=== PATIENT | female | born 1985 ===

== ENCOUNTER 2023-05-20 11:09 | Emergency (ER) | payer OTHER, SELFPAY ==
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
[2023-05-20 11:59] VITALS: BP 126/75; PULSE 74; RESP 14; O2SAT 97; BMI 18.6
== END 2023-05-20 13:35 | disposition home or self-care (01) ==
PROVIDERS: Emergency Provider Emergency Medicine
DX: Z04.1 Encounter for examination and observation following transport accident (principal); M54.50 Low back pain, unspecified
CPT/HCPCS: 72070; 72100; 99282; 99283

== ENCOUNTER 2023-06-17 09:39 | Emergency (ER) | payer SELFPAY ==
--- NOTE | ~2023-06-17 | XR_ITS ---
EXAMINATION: XR CHEST CLINICAL INFORMATION: Chest pain COMPARISON: None available. TECHNIQUE: Frontal view of the chest was obtained. FINDINGS: No focal consolidation. No pneumothorax. Trachea is midline. Cardiac mediastinal silhouette is not enlarged. No large pleural effusion. Osseous structures are intact. Soft tissues are unremarkable. XR/XR chest 1V IMPRESSION: No acute cardiopulmonary process.
--- NOTE | 2023-06-17 09:45 | ECG_ITS ---
Test Reason : cp Blood Pressure : / mmHG Vent. Rate : 072 BPM Atrial Rate : 072 BPM P-R Int : 124 ms QRS Dur : 070 ms QT Int : 360 ms P-R-T Axes : 071 042 046 degrees QTc Int : 394 ms Normal sinus rhythm with sinus arrhythmia Septal infarct , age undetermined Abnormal ECG No previous ECGs available Referred By: Generic ED Physician Electronically Signed By:Hamzah Mooney
[2023-06-17 09:58] VITALS: BP 128/83; PULSE 82; RESP 18; TEMP 36.8; O2SAT 99
[2023-06-17 10:37] LABS: Hematocrit 42.7 % (37.0-47.0); Hemoglobin 14.6 g/dl (12.0-16.0); Mean Corpuscular HGB Conc 34.2 g/dl (31.0-35.0); Mean Corpuscular Hemoglobin 31.7 pg (27.0-33.0); Mean Corpuscular Volume 92.6 fL (80.0-98.0); Mean Platelet Volume 11.6 fL (9.4-12.3); PLT CLUMP 1; Red Blood Count 4.61 X10*6/uL (4.20-5.50); Red Cell Distribution Width 12.1 % (11.0-16.0)
[2023-06-17 10:38] LABS: WBC ABN SCTR FOR CBC 1
[2023-06-17 10:56] LABS: Anion Gap 9 (12-20); Blood Urea Nitrogen 9 mg/dL (9-16); Calcium 9.9 mg/dL (8.4-10.2); Carbon Dioxide 26 mmol/L (22-29); Chloride 107 mmol/L (96-108); Creatinine Clr Calc Pharmacy 72.4; Estimated Glomerular Filt Rate > 60; Glucose Random 87 mg/dL (60-115); Potassium 3.8 mmol/L (3.3-5.1); Sodium 138 mmol/L (135-145)
[2023-06-17 11:07] LABS: Band Neutrophils Percent 0 % (3-5); Eosinophils Percent Manual 1 % (0-4); Lymphocytes Percent Manual 22 % (20-40); Monocytes Percent Manual 6 % (2-11); Neutrophils Percent Manual 71 % (45-73)
[2023-06-17 11:11] LABS: RBC Morphology NORMAL
[2023-06-17 11:12] LABS: Platelet Estimate DECREASED (NORMAL); Platelet Morphology Comment NORMAL
--- NOTE | 2023-06-17 11:14 | ED_ITS ---
HPI - Chest Pain General Chief Complaint: Chest Pain Stated Complaint: chest pain diff breathing Time Seen by Provider: 06/17/23 11:09 Source: patient and old records reviewed Mode of arrival: ambulatory Limitations: no limitations History of Present Illness HPI narrative: 38 yo female with PMH of COPD not on inhalers, not on OCPs here with c/o intermittent bilateral sharp chest pain x 2 weeks worse with movements and exertion. No known CAD, no fam hx of early CAD, no recent URI or cocaine use. She smokes THC but no cigarettes. MD complaint: chest pain Onset (ago): week(s) (2) Timing of current episode: episodic Prior episodes: No Onset: during rest and during exertion Pain location: left chest and right chest Pain radiation: none Severity: moderate Quality: sharp Relieving factors: nothing Exacerbating factors: exertion, palpation and movement Associated symptoms: dyspnea Treatment prior to arrival: none Related Data Previous Rx's Medication Instructions Recorded cyclobenzaprine 5 mg tablet 5 mg PO BEDTIME PRN muscle spasm 05/20/23 #7 tabs lidocaine 5 % topical patch 1 patch topical DAILY #15 ea 05/20/23 (Lidoderm) naproxen 500 mg tablet 500 mg PO Q8-12H PRN pain (scale 05/20/23 score 4-6) #14 tabs albuterol sulfate 90 mcg/actuation 2 puff inhalation QID PRN 06/17/23 aerosol inhaler shortness of breath or wheezing #6.7 grams fluticasone furoate 100 1 inh inhalation DAILY 14 days #14 06/17/23 mcg/actuation blister powder for ea inhalation prednisone 20 mg tablet 20 mg PO DAILY 5 days #5 tabs 06/17/23 Allergies Allergy/AdvReac Type Severity Reaction Status Date / Time No Known Allergies Allergy Verified 05/20/23 11:58 Review of Systems 2 Review of Systems: Constitutional : No Weight loss, No Fever, No Chills ENT/Mouth : No sore throat, No Rhinorrhea Eyes: No Eye Pain, No Swelling Cardiovascular : pos Chest Pain, pos SOB, no Dyspnea on Exertion, No Orthopnea, No Edema, No Palpitations Respiratory : No Cough, No Sputum Gastrointestinal : no Nausea, No Vomiting, No Diarrhea, No abdominal Pain, No Hematochezia, No Melena Genitourinary : No Dysuria, No Urinary Frequency Musculoskeletal : No joint pain, No Myalgias, No Joint Swelling Skin : No Skin Lesions, No rash Neuro : No Weakness, No Numbness, No Dizziness, No Headache Psych : No Anxiety/Panic, No Depression All other systems reviewed and are negative [facility] Past Medical History Attestation statement: The following information was validated with the patient. Medical History COPD (chronic obstructive pulmonary disease) Social History Social History (Updated 06/17/23 @ 11:40 by Yeni Allen DO) Patient Tobacco Use Status: Never used Tobacco Substance Use Type: Marijuana Advance Directives: No Advance Directives Information Provided: No Physical Exam 2 Vital Signs: Vital Signs: Last Vital Signs Temp 98.5 F 06/17/23 11:29 Pulse 95 06/17/23 11:29 Resp 13 06/17/23 11:29 BP 141/90 H 06/17/23 11:29 Pulse Ox 98 06/17/23 11:29 O2 Del Method Room Air 06/17/23 11:29 BMI result Body Mass Index 0.2 Appearance: Alert. Oriented X3. No acute distress. Eyes: Pupils equal, round and reactive to light. ENT: Pharynx normal. Neck: Normal inspection. Neck supple. CVS: Normal heart rate and rhythm. Pulses normal. Chest: ttp along bilateral costochondral border Respiratory: No respiratory distress. Breath sounds normal. Abdomen: Soft and nontender. Skin: Skin warm and dry. Normal skin color. Normal skin turgor. Extremities: No lower extremity edema. No calf ttp Neuro: Oriented X 3. No motor deficit. No sensory deficit. Medical Decision Making Medical Decision Making [facility] Narrative: 38 yo female with PMH of COPD but not inhalers here with c/o 2 weeks intermittent sharp chest pains on and off seems worse with movements and exertion. No recent travel procedures, not on OCPs. At this time will need EKG, troponin x 1, PERC negative, distal pulses intact doubt dissection, seems more resp related will obtain Differential Diagnosis Differential Diagnoses: The differential diagnosis associated with the presentation includes pneumonia, costochondritis, COPD Admission/Observation Consideration of admission/observation: Escalation of care including admission/observation considered negative workup stable for DC Lab Data [facility] Lab Attestation statement: I reviewed the patient's lab results. 06/17/23 10:27 06/17/23 10:27 Labs: Lab Results 06/17/23 06/17/23 Range/Units 10:27 11:36 WBC 9.4 (4.8-10.8) X10*3/uL RBC 4.61 (4.20-5.50) X10*6/uL Hgb 14.6 (12.0-16.0) g/dl Hct 42.7 (37.0-47.0) % MCV 92.6 (80.0-98.0) fL MCH 31.7 (27.0-33.0) pg MCHC 34.2 (31.0-35.0) g/dl RDW 12.1 (11.0-16.0) % Plt Count 124 L (160-400) X10*3/uL MPV 11.6 (9.4-12.3) fL Immature Gran % (Auto) Cancelled Neut % (Auto) Cancelled Lymph % (Auto) Cancelled Evans % (Auto) Cancelled Eos % (Auto) Cancelled Baso % (Auto) Cancelled Lymph # (Auto) Cancelled Evans # (Auto) Cancelled Eos # (Auto) Cancelled Baso # (Auto) Cancelled Abs Immat Gran (auto) Cancelled Absolute Neuts (auto) Cancelled Absolute Nucleated RBC 0.000 (0.0-0.012) X10*3/uL Nucleated RBC % (auto) 0.0 (0.0-0.2) /100WBC Neutrophils % (Manual) 71 (45-73) % Band Neutrophils % 0 L (3-5) % Lymphocytes % (Manual) 22 (20-40) % Monocytes % (Manual) 6 (2-11) % Eosinophils % (Manual) 1 (0-4) % Abs Neuts (Manual) 6.7 (2.0-8.3) X10*3/uL Lymphocytes # (Manual) 2.1 (1.2-4.9) X10*3/uL Monocytes # (Manual) 0.6 (0.1-1.2) X10*3/uL Eosinophils # (Manual) 0.1 (0.0-0.4) X10*3/uL Platelet Estimate DECREASED (NORMAL) Plt Morphology Comment NORMAL RBC Morphology NORMAL Sodium 138 (135-145) mmol/L Potassium 3.8 (3.3-5.1) mmol/L Chloride 107 (96-108) mmol/L Carbon Dioxide 26 (22-29) mmol/L Anion Gap 9 L (12-20) BUN 9 (9-16) mg/dL Creatinine 0.80 (0.5-1.4) mg/dL Estim Creat Clear Calc 72.4 Estimated GFR > 60 Random Glucose 87 (60-115) mg/dL Calcium 9.9 (8.4-10.2) mg/dL Magnesium 2.0 (1.6-2.6) mg/dL Troponin I High Sens 3.0 (<3.5-17.0) ng/L Influenza Type A (PCR) NEGATIVE (Negative) Influenza Type B (PCR) NEGATIVE (Negative) RSV RNA Qual (PCR) NEGATIVE (Negative) SARS-CoV-2 RNA (RT-PCR) NEGATIVE (Negative) Independent Interpretation I performed an independent interpretation of an: EKG and Plain X-Ray (normal ) Interpretation: Rate: 72 Rhythm: NSR Rhine: normal Normal P waves. Normal JODEE. Normal QRS complex. ST T wave : normal no GLORIA qTC: normal prior studies: no acute ischemia The study has been interpreted contemporaneously by me. . Radiology Impression Discussion of test interpretation with radiology: I have reviewed the radiologist's reading. External Record Review External record reviewed: Outpatient record Prescription Management I considered prescription management with: Other Discharge Plan Discharge Clinical Impression: Atypical chest pain COPD (chronic obstructive pulmonary disease) Qualifiers: COPD type: COPD with acute exacerbation Qualified Code(s): J44.1 - Chronic obstructive pulmonary disease with (acute) exacerbation Patient Disposition: Home, Self-Care Instructions: Chest Pain (ED), COPD (Chronic Obstructive Pulmonary Disease) (ED) Additional Instructions: EKG, tests for heart, viral panel, chest xray normal follow up with your doctor if this continues for outpatient stress test. platelet count was mildly low can repeat in 1 week with your doctor avoid aspirin Prescriptions: New prednisone 20 mg tablet 20 mg PO DAILY 5 Days Qty: 5 0RF albuterol sulfate 90 mcg/actuation HFA aerosol inhaler 2 puff inhalation QID PRN (Reason: shortness of breath or wheezing) Qty: 6.7 0RF fluticasone furoate 100 mcg/actuation blister with device 1 inh inhalation DAILY 14 Days Qty: 14 0RF Rx Instructions: rinse mouth after No Action lidocaine [Lidoderm] 5 % adhesive patch,medicated 1 patch topical DAILY Qty: 15 0RF Rx Instructions: leave on most painful area for up to 12 hrs naproxen 500 mg tablet 500 mg PO Q8-12H PRN (Reason: pain (scale score 4-6)) Qty: 14 0RF cyclobenzaprine 5 mg tablet 5 mg PO BEDTIME PRN (Reason: muscle spasm) Qty: 7 0RF Stand Alone Forms: Work/School Release
[2023-06-17 11:29] VITALS: BP 141/90; PULSE 95; RESP 13; TEMP 36.9; O2SAT 98
[2023-06-17 11:35] LABS: Eosinophils Absolute Manual 0.1 X10*3/uL (0.0-0.4); Lymphocytes Absolute Manual 2.1 X10*3/uL (1.2-4.9); Monocytes Absolute Manual 0.6 X10*3/uL (0.1-1.2); Neutrophils Absolute Manual 6.7 X10*3/uL (2.0-8.3); White Blood Count 9.4 X10*3/uL (4.8-10.8)
[2023-06-17 11:36] LABS: Platelet Count 124 X10*3/uL (160-400)
[2023-06-17 12:19] LABS: Influenza A PCR NEGATIVE (Negative); Influenza B PCR NEGATIVE (Negative); Resp Syncy Virus RNA Qual PCR NEGATIVE (Negative); SARS COV2 PCR INHOUSE NEGATIVE (Negative)
[2023-06-17 13:35] VITALS: BP 113/83; PULSE 67; RESP 16; TEMP 36.6; O2SAT 98
== END 2023-06-17 13:36 | disposition home or self-care (01) ==
PROVIDERS: Emergency Provider Emergency Medicine
DX: J44.1 Chronic obstructive pulmonary disease with (acute) exacerbation (principal); R07.89 Other chest pain; Z11.52 Encounter for screening for COVID-19; Z20.828 Contact with and (suspected) exposure to other viral communicable diseases
CPT/HCPCS: 0241U; 36415; 71045; 80048; 83735; 84484; 85007; 85027; 93005; 99283; 99285

== ENCOUNTER → 2023-06-17 09:45 | Outpatient (BNV) | payer SELFPAY | PROVIDERS: Emergency Provider Emergency Medicine; Visit Provider Internal Medicine Cardiovascular Disease | DX: I49.9 Cardiac arrhythmia, unspecified (principal) | CPT/HCPCS: 93010 ==

== ENCOUNTER 2024-12-03 10:41 | Emergency (ER) | payer SELFPAY ==
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
[2024-12-03 11:10] VITALS: BP 142/87; PULSE 82; RESP 16; TEMP 36.1; O2SAT 99; BMI 20.6
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
[2024-12-03 12:29] VITALS: BP 142/87; PULSE 82; RESP 16; TEMP 36.1; O2SAT 99
--- OUTSIDE RECORDS SUMMARY | 2024-12-03 16:17 | XMS_ITS | Clinical Summary ---
Author Organization [facility] Address [address] [place] [address] Care Team Providers Care Dyehouse Worker Name Role Phone Thomasserafin Rikmarkel KRISTIN Primary Care Provider [phone] Source Comments PLEASE NOTE, if this patient is a minor, it may be UNLAWFUL to discuss sensitive information that is contained in these records (such as FAMILY PLANNING, MENTAL HEALTH or SUBSTANCE ABUSE) with the minor patient's parent or other person without the patient's specific authorization.[facility] Allergies No known active allergies Medications clobetasoL (TEMOVATE) 0.05 % cream APPLY DAILY TO AFFECTED AREAS ON SCALP ONCE DAILY FOR 3 WEEKS, THEN BREAK 1 WEEK AND REPEAT 3 Active acetaminophen (TYLENOL) 500 mg tabletIndicatio ns:Chronic daily headache Take 1 Tablet by mouth every 6 (six) hours as needed for pain or fever (headaches) 90 Tablet 1 3 Active mometasone-form oterol (DULERA) 100-5 mcg/actuation inhalerIndicati ons:maintenance therapy for asthma Inhale 1 Puff into the lungs 2 (two) times daily Indications: controller medication for asthma 1 g 5 3 Active albuterol HFA 90 mcg/actuation inhalerIndicati ons:acute asthma attack Inhale 2 Puffs into the lungs every 6 (six) hours as needed for shortness of breath or wheezing Indications: asthma attack 18 g 2 3 Active FLUoxetine (PROZAC) 40 mg capsuleIndicati ons:anxiety with depression Take 1 Capsule by mouth every morning Indications: anxiousness associated with depression 90 Capsule 1 3 Active nortriptyline (PAMELOR) 25 mg capsuleIndicati ons:Chronic daily headache TAKE 1 CAPSULE BY MOUTH NIGHTLY AT BEDTIME MIGRAINE PREVENTION 90 Capsule 3 3 Active omeprazole (PRILOSEC) [address] capsuleIndicati ons:Chronic GERD TAKE 1 CAPSULE BY MOUTH EVERY DAY IN THE MORNING BEFORE BREAKFAST 90 Capsule 3 Active Active Problems Problem Noted Date Diagnosed Date Chronic GERD 07/20/2021 Chronic daily headache 07/20/2021 Marijuana user 07/20/2021 Positive test for herpes simplex virus (HSV) ant ibody 06/14/2018 Low grade squamous intraepit helial lesion (LGSIL) on cervicovaginal cytologic smear 09/11/2017 COPD with asthma ([facility]) 05/19/2017 Overview (05/19/2017): CXR at [facility] on 2017: No acute pulmonary disease. Findings as above consistent with COPD. 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 Gordon, 2016 biopsy negative H. pylori infection 02/21/2016 09/14/19 23 Immune to hepatitis B 02/20/20162022 Immunizations Immunization Administration Dates Next Due Flu, Preservative Free 01/08/2018 HEP A-HEP B ([facility]) 09/13/2022 Hep A, adult 09/13/2022(Deferred: Different Brand Given),06/06/2018 Hep B, Adult/Adol (MAKMBHP-G-WTYXG/RECOMBIVAX-ADULT) 10/08/2018,06/06/2018 Hep B,adult,adjuvanted (HEPLISAV) 2022(Deferred: Different Brand Given) INFLUENZA, SEASONAL, INJECTABLE 04/09/2013 INFLUENZA, SEASONAL, INJECTA BLE, PRESERVATIVE FREE 12/26/2015,01/13/2015 PNEUMOCOCCAL POLYSACCHARIDE PPV23 (Pneumovax 23) 06/06/2018 TDAP 10/08/2018 Social History Tobacco Use Types Packs/Day Years Used Date Smoking Tobacco: Former Smokeless Tobacco: Never Comments:Quit at age 19 Alcohol Use Standard Drinks/Week Comments Yes 0 (1 standard drink = 0.6 oz pur e alcohol) occasionally Social Connections Answer Date Recorded Connectedness 0 11/30/2023 Financial Resource Strain Answer Date R ecorded Financial Resource Strain 0 2018 Stress Answer Date Recorded Stress 0 11/10/2018 Physical Activity Answer Date Recorded Physical Activity 0 11/10/2018 Food Insecurity Answer Date Recorded Food 0 12/19/2023 Transportation Needs Answer Date Record ed Transportation 0 11/10/2018 Housing Stability Answer Date Recorded Housing 0 11/10/2018 Safety and Environment Answer Date Fabrice rded Safety 0 09/13/2022 Utilities Answer Date Recorded Utilities 0 11/10/2018 Employment Answer Date Recorded Employment 0 11/10/2018 Comments No Sex and Gender Information Value Date Recorded Sex Assigned at Female 04/15/2017 7:40 AM PST Legal Sex Female 11:50 AM PDT Gender Identity Female 04/15/2017 7:40 AM PST Sexual Orientation Straight 06/06/2018 7: 10 AM PDT Last Filed Vital Signs Vital Sign Reading Time Taken Comments Blood Pressure 118/80 01/05/2023 11:26 AM EDT Pulse 67 01/05/2023 11:26 AM EDT Temperature 36.6 C (97.8 F) 01/05/2023 11:26 AM EDT Respiratory Rate 20 01/05/2023 11:26 AM EDT Oxygen Saturation 95% 09/13/2022 10:43 AM EDT Inhaled Oxygen Concentration - - Weight 47.6 kg (105 lb) 01/05/2023 11:26 AM EDT Height 160 cm (5' 3 ) 01/05/2023 11:26 AM EDT Body Mass Index 18.6 01/05/2023 11:26 AM EDT Plan of Treatment Health Maintenance Due Date Last Done Comments Anxiety Screening 1986 HPV Screening 1986 Pap + HPV 1986 Medicare Annual Wellness Visit 2004 Imm-Pneumococcal (2 of 2 - PCV) 06/07/2019 9, 02/19/2010 Cervical Cancer Screening 07/09/2021 Pap Smear 07/09/2021 07/09/2018 Depression Monitoring 12/14/2022 09/13/2022 , 07/20/2021, 01/08/2018 Imm-Hepatitis A (3 of 3 - Ri sk Twinrix secondary 3-dose series) 02/13/2023 09/13/2022, 06/06/2018 Relationship Safety Screening/Counseling 09/14/2023 09/13/2022, 07/20/2021, 06/06/2018 Tobacco Screening 09/14/2023 09/13/2022, 07/20/2021 Alcohol and Drug Screen 03/25/2024 09/14/19 23, 07/20/2021, 06/06/2018, Additional history exists [id number] ( season) 2024 Imm-Influenza (#1) 2024 01/04/2023, 1 , 01/08/2018, Additional history exists Diabetes Screening 09/13/2025 09/13/2022, 0 09/13/2022, 07/20/2021, Additional history exists Hypertension Screening (#1) 01/04/2026 Imm-DTaP/Tdap/Td (3 - Td or Tdap) 10/20/2029 10/21/2019, 10/08/2018, 12/09/2008 HIV Screening Completed 11/10/2018, 09/22, 01/08/2018 Imm-Hepatitis B Completed 09/13/2022, 09/22, 06/06/2018 Cervical Ablation/Cold-Knife Conization Discontinued Cervical Cryotherapy Discontinued Colposcopy Discontinued Endometrial Biopsy Discontinued Excision/Leep Discontinued HPV Genotyping Discontinued Vaginal Pap Discontinued Vulvoscopy Discontinued Procedures Procedure Name Priority Date/Time Associated Diagnosis Comments HEMOGLOBIN GLYCOSYLATED A1C Routine 09/13/2022 11:36 AM EDT Routine general medical examination at a health care facility Marijuana user Chronic daily headache Chronic GERD Chronic hepatitis C without hepatic coma (HCC-CMS) Bipolar disease, chronic (HCC-CMS) Anxiety and depression COPD with asthma (HCC-CMS) PTSD (post-traumatic stress disorder) Abnormal finding of blood chemistry, unspecified ANTIBODY HIV-1&HIV-2 SINGLE RESULT Routine 11/10/2018 11:25 AM EDT Vaginal discharge PAP, LIQUID BASED Routine 07/09/2018 1:2 9 PM EDT Well woman exam from Last 3 Months or Most Recently Relevant to Health Maintenance Results * HEMOGLOBIN, GLYCOSYLATED (A1C) (09/13/2022 11:36 AM EDT) HEMOGLOBIN A1C 5.2 <5.7 % of total Hgb [facility] Comment: For the purpose of screening for the presence of diabetes: <5.7% Consistent with the absence of diabetes 5.7-6.4% Consistent with increased risk for diabetes (prediabetes) > or =6.5% Consistent with diabetes This assay result is consistent with a decreased risk of diabetes. Currently, no consensus exists regarding use of hemoglobin A1c for diagnosis of diabetes in children. According to [place] Diabetes Association (ADA) guidelines, hemoglobin A1c <7.0% represents optimal control in non- diabetic patients. Different metrics may apply to specific patient populations. Standards of Medical Care in Diabetes(ADA). Blood Blood / Unknown 09/13/2022 1 1:36 AM EDT 09/13/2022 11:36 AM EDT Luda Pierce CONVEYOR LINE BAKERY WORKER-C LAB - BLOOD DRAW Edited Result - Final [facility] [address] [address], [facility] [address] [id number] * STD--HIV1 &2 (11/10/2018 11:25 AM EDT) HIV 1 AND 2 ANTIBODY SCREEN NEGATIVE NEGATIVE unrival [facility] Comment: This assay is a 4th generation assay allowing for earlier detection of HIV infection by detecting the presence of the HIV-1 p24 antigen as well as the traditional antibodies to HIV type 1 (including group O) and type 2. Use of a 4th generation assay is the current CDC recommendation for HIV screening. Blood specimen (specimen) Blood / Unknown 11/10/2018 11:25 AM EDT 11/10/2018 12:10 PM EDT Narrative [facility] - 11/10/2018 5:01 PM EDT [facility], a member of [address] [address] High School Guidance Counselor - Elizabeth Hinds MD PT ID [id number] ORD# [id number] Jg Andrade NP LAB - BLOOD DRAW Final Result [facility] [address] [place] [address], * PAP, LIQUID BASED (07/09/2018 1:29 PM EDT) Specimen from uterine cervix (specimen) Cervix uteri structure / Unknown 07/09/2018 1:29 PM EDT Impressions [facility] - 07/09/2018 1:29 PM EDT Thinprep pap: Negative for squamous intraepithelial lesion and malignancy HPV: negative Marga Betancur PA-C LAB - PATHOLOGY AND CYTOL OGY AMBULATORY Final Result [facility] [address] [place] [address], [place] [phone] from Last 3 Months or Most Recently Relevant to Health Maintenance Insurance [facility] BRAULIO LARRY [id number] [facility] Care Teams Dyehouse Worker Relationship Specialty Start Date End Date Zohreh Yuen NP [address] [place] [address] PCP - General Family Medicine, YOUTH CORRECTIONS OFFICER 02/19/24
--- OUTSIDE RECORDS SUMMARY | 2024-12-03 16:17 | XMS_ITS | Encounter Summary ---
Author Organization [facility] Address [address] [place] [address] Care Team Providers Care Aesthetics Instructor Name Role Phone Alpa Zohreh FOSTER Primary Care Provider [phone] Encounter Details Date Type Department Care Team ([facility] st Contact Info) Description 01/15/2023 / TELEPHONE [facility] [address] [place] [id number] James Cho [address] [place], [place] [id number] Social History Tobacco Use Types Packs/Day Years Used Date Smoking Tobacco: Former Smokeless Tobacco: Never Comments:Quit at age 19 Alcohol Use Standard Drinks/Week Comments Yes 0 (1 standard drink = 0.6 oz pur e alcohol) occasionally Social Connections Answer Date Recorded Social Connections and Isolation 0 11/10/2018 Financial Resource Strain Answer Date R ecorded Financial Resource Strain 0 2018 Stress Answer Date Recorded Stress 0 11/10/2018 Physical Activity Answer Date Recorded Physical Activity 0 11/10/2018 Food Insecurity Answer Date Recorded Food 0 11/10/2018 Transportation Needs Answer Date Record ed Transportation [...] Orientation Straight 06/06/2018 7: 10 AM PDT documented as of this encounter Plan of Treatment Not on file documented as of this encounter Visit Diagnoses Not on filedocumented in this encounter Additional Health Concerns Assessment Noted Time PHQ-9 Depression Total Score: 13 023 10:44 AM PDT A Depression follow-up plan has been documented for the patient 09/13/2022 12:50 PM PDT documented as of this encounter Care Teams Aesthetics Instructor Relationship Specialty Start Date End Date Zohreh Yuen NP [address] [place] [address] PCP - General Family Medicine, MANAGER COMMERCIAL 02/19/24 documented as of this encounter
== END 2024-12-03 12:31 | disposition home or self-care (01) ==
PROVIDERS: Emergency Provider Student in an Organized Health Care Education/Training Program; PCP Dentist General Practice
DX: S39.012A Strain of muscle, fascia and tendon of lower back, initial encounter (principal); V43.62XA Car passenger injured in collision with other type car in traffic accident, initial encounter; Y93.89 Activity, other specified; Y92.89 Other specified places as the place of occurrence of the external cause; Y99.8 Other external cause status
CPT/HCPCS: 72100; 73030; 99282; 99283

== ENCOUNTER → 2024-12-03 11:11 | Outpatient (BNV) | payer OTHER, SELFPAY | PROVIDERS: Emergency Provider Student in an Organized Health Care Education/Training Program; PCP Dentist General Practice; Visit Provider Radiology Diagnostic Radiology | DX: M54.50 Low back pain, unspecified (principal); M25.512 Pain in left shoulder; V49.59XA Passenger injured in collision with other motor vehicles in traffic accident, initial encounter | CPT/HCPCS: 72100; 73030 ==